=== PATIENT | female | born 1950 ===

== ENCOUNTER 2021-11-27 16:51 | Outpatient (CLI) | payer MEDICARE, SELFPAY ==
--- NOTE | ~2021-11-27 | MR_ITS ---
EXAMINATION: MR lumbar spine wo con DATE: 11/27/2021 17:50 INDICATION: Lumbar radiculopathy. Low back pain. TECHNIQUE: Magnetic resonance imaging (MRI) of the lumbar spine was performed without intravenous con trast. Sequences included sagittal T2-weighted FSE, sagittal T2-weighted FS FSE, sagittal T1-weighted FSE, and axial T2-weighted FSE. COMPARISON: None FINDINGS: There is 8 degrees levocurvature of lumbar spine. There is 7 mm anterolisthesis of L4 on L5 . There are Schmorl's nodes at most levels. There is mild chronic anterior wedging of T12 and L1 vert ebral bodies. There is severely decreased disc height at L2-L3, moderately decreased disc height at L 3-L4, and severely decreased disc height at L5-S1 with endplate remodeling. There is ligamentum flavu m hypertrophy at the disc levels from L1-L2 through L4-L5. The distal spinal cord signal intensity is normal. The conus medullaris is at L1. The following disc levels are specifically discussed: L1-L2: The disc is bulging. There is moderate bilateral facet joint osteoarthritis. There is mild tiara ateral neural foraminal stenosis. There is mild central canal stenosis. L2-L3: The disc is bulging and has an annular fissure. There is severe bilateral facet joint osteoart hritis. There is moderate bilateral neural foraminal stenosis. There is severe central canal stenosis . L3-L4: The disc is bulging and has an annular fissure. There is severe bilateral facet joint osteoart hritis. There is moderate bilateral neural foraminal stenosis. There is mild central canal stenosis. L4-L5: The disc is bulging and has an annular fissure. There is severe bilateral facet joint osteoart hritis. There is mild bilateral neural foraminal stenosis. There is mild central canal stenosis. L5-S1: The disc is bulging and has an annular fissure. There is severe bilateral facet joint osteoart hritis. There is mild bilateral neural foraminal stenosis. There is no central canal stenosis. IMPRESSION: 1. Severe lumbar spondylosis. Reviewed, dictated and finalized at location A.
== END 2021-11-27 16:52 ==
PROVIDERS: PCP Physical Medicine & Rehabilitation; Visit Provider Physical Medicine & Rehabilitation
DX: M54.16 Radiculopathy, lumbar region (principal); M43.06 Spondylolysis, lumbar region
CPT/HCPCS: 72148

== ENCOUNTER 2022-03-19 12:11 | Outpatient (CLI) | payer MEDICARE, SELFPAY ==
--- NOTE | ~2022-03-19 | MR_ITS ---
EXAMINATION: MR cervical spine wo/w con DATE: 03/19/2022 13:16 INDICATION: Neck pain. TECHNIQUE: Magnetic resonance imaging (MRI) of the cervical spine was performed without and with 20 m L Multihance intravenous contrast. Sequences included sagittal T2-weighted FSE, sagittal T2-weighted FS FSE, sagittal T1-weighted FSE, axial T2-weighted FSE, and axial T1-weighted SE. Postcontrast seque nces included sagittal T1-weighted FS FSE, and axial T1-weighted FS SE. COMPARISON: None FINDINGS: Straightening of the normal cervical lordosis. Vertebral body heights are normal. Bulky anterior ost eophytes, solidly bridging from C3 through C6 and nearly bridging at C2-C3 and C6-C7. Severe disc hei ght loss with mild fibrofatty degenerative endplate changes at C6-C7. Moderate disc height loss at C5 -C6 and mild disc height loss at C3-C4, C4-C5 and C7-T1 through T2-T3. Marrow signal is otherwise unr emarkable. Mild focal left-sided increased cord signal at C6-C7 likely related to an adjacent disc ex trusion which will be further detailed below. Cord signal intensity is otherwise normal with no enhan cing lesions. Visualized cervical soft tissues are unremarkable. The following disc levels are specif ically discussed: C2-C3: The disc does not extend beyond the endplate margin. There is mild right uncovertebral joint o steoarthritis. There is mild right and moderate left facet joint osteoarthritis. There is no neural f oraminal stenosis. There is no central canal stenosis. C3-C4: Annular fissure and small central disc protrusion. There is mild bilateral uncovertebral joint osteoarthritis. There is mild to moderate right facet joint osteoarthritis. There is fusion across p ortions of the left facet joint with moderate associated hypertrophic changes. There is mild bilatera l neural foraminal stenosis. There is mild central canal stenosis. C4-C5: Heterotopic ossification along the longitudinal ligament at the cephalad end caudal margins of a moderate-sized central disc protrusion with associated annular fissure. This indents the left vent ral surface of the cord. There is mild bilateral uncovertebral joint osteoarthritis. There is right a nd mild left facet joint osteoarthritis. There is mild bilateral neural foraminal stenosis. There is mild central canal stenosis. C5-C6: Disc is bulging with annular fissure. Ossification along the posterior longitudinal ligament b oth cephalad and caudal to the level of the disc space. There is severe bilateral uncovertebral joint osteoarthritis. There is mild right and moderate left facet joint osteoarthritis. There is mild righ t and moderate left neural foraminal stenosis. There is mild central canal stenosis with some flatten ing of the ventral surface of the cord. C6-C7: Posterior disc osteophyte complex which includes an annular fissure and moderate sized central to left paracentral disc extrusion with disc material extending couple millimeters cephalad and caud al to the level of the endplates and which indents the left ventral surface of the cord. There is sev ere bilateral uncovertebral joint osteoarthritis. There is moderate bilateral facet joint osteoarthri tis. There is mild right and moderate left neural foraminal stenosis. There is mild to moderate centr al canal stenosis measuring 7 mm AP in the mid sagittal plane. C7-T1: Disc is mildly bulging with superimposed small central disc extrusion with disc material exten ding couple millimeters cephalad and caudal to the level of the endplates. There is mild bilateral un covertebral joint osteoarthritis. There is mild left and moderate to severe right facet joint osteoar thritis. There is mild bilateral neural foraminal stenosis. There is mild central canal stenosis. IMPRESSION: 1. Severe cervical spondylosis. 2. bulky bridging or nearly bridging anterior osteophytes and small amount of ossification along the posterior
== END 2022-03-19 12:12 ==
PROVIDERS: Visit Provider Physical Medicine & Rehabilitation
DX: M54.12 Radiculopathy, cervical region (principal); M43.12 Spondylolisthesis, cervical region; M48.02 Spinal stenosis, cervical region
CPT/HCPCS: 72156; A9577